=== PATIENT | male | born 1960 | race Caucasian/White ===

== ENCOUNTER 2018-06-29 21:20 | Observation (INO) | END 2018-06-30 18:29 | disposition home or self-care (01) ==

== ENCOUNTER 2019-08-02 11:52 | Inpatient (IN) | payer OTHER ==
[~2019-08-02] VITALS: Ht 167.6 cm; Wt 87.0 kg
[2019-08-02] VITALS (35 sets, daily range): BP systolic 89–141; BP diastolic 50–135; PULSE 59–83; RESP 12–29; Ht 167.6 cm; Wt 87.0 kg
[~2019-08-02 11:52] MED LIST: ASPI-817 PO; ATOR-2 PO; KETO10TA PO; LOSA25TA2 PO; METO-335 PO; PRAS10TA6 PO
[2019-08-02] MEDS ORDERED: ATROPINE 1 MG/10 ML SYRINGE ONE ×2 (12:25→18:15)
[2019-08-02] MEDS ORDERED: LIDOCAINE 1% (MDV) 20 ML INJ ONE (12:25)
[2019-08-02] MEDS ORDERED: IOHEXOL 350MG/ML 50 ML BTL ONE (12:28)
[2019-08-02] MEDS ORDERED: IODIXANOL LOCM 100 ML BTL ONE (12:28)
[2019-08-02] MEDS ORDERED: FENTAnyl 50 MCG/ML VIAL ONE (12:30)
[2019-08-02] MEDS ORDERED: PRASUGREL HYDROCHLORIDE 10 MG TABLET PO ONE (13:11)
[2019-08-02] MEDS ORDERED: HEPARIN 1000 UNITS/ML 10 ML INJ ONE (13:11)
[2019-08-02] MEDS ORDERED: SOD CHLORIDE 0.9% 1,000 ML IV SCH (13:12)
[2019-08-02] MEDS ORDERED: POTASSIUM CHLORIDE (SR) 20 MEQ TAB PO STA ×2 (13:16→14:42)
[2019-08-02] MEDS ORDERED: OXYCODONE/ACETAMINOPHEN (5/325) TAB PO PRN ×2 (13:30)
[2019-08-02] MEDS ORDERED: morphine 2 MG INJ IV PRN (13:30)
[2019-08-02] MEDS ORDERED: MAGNESIUM SULFATE 2 GM/50 ML 50 ML IVPB ONE (13:30)
[2019-08-02] MEDS ORDERED: ACETAMINOPHEN 325 MG TAB PO PRN ×2 (13:30→15:00)
[2019-08-02] MEDS: ONDANSETRON 4 MG INJ IV PRN ×2 (15:27→19:51)
[2019-08-02] MEDS: POTASSIUM CHLORIDE 40 MEQ in SOD CHLORIDE 0.45% 1,000 ML IV SCH (16:49)
[2019-08-02] MEDS ORDERED: DOPamine-D5W 1.6 MG/ML 250 ML IV SCH (17:00)
[2019-08-02] MEDS ORDERED: ALUMINUM HYDROXIDE 30 ML CUP PO PRN (20:00)
[2019-08-02] MEDS: AL HYDROX/MG HYDROX/SIMETH 30 ML CUP PO PRN (20:11)
[2019-08-02] MEDS: ATORVASTATIN 80 MG TAB PO SCH (20:51)
[2019-08-02] MEDS: LOSARTAN 25 MG TAB PO SCH (21:00)
[2019-08-03] VITALS (25 sets, daily range): BP systolic 94–130; BP diastolic 57–82; PULSE 66–92; RESP 10–27
[2019-08-03] MEDS: POTASSIUM CHLORIDE 40 MEQ in SOD CHLORIDE 0.45% 1,000 ML IV SCH (02:11)
[2019-08-03] MEDS: ASPIRIN (EC) 81 MG TAB PO SCH (08:36)
[2019-08-03] MEDS: PRASUGREL HYDROCHLORIDE 10 MG TABLET PO SCH (08:36)
[2019-08-03] MEDS: LOSARTAN 25 MG TAB PO SCH ×3 (08:37→21:14)
[2019-08-03] MEDS: AL HYDROX/MG HYDROX/SIMETH 30 ML CUP PO PRN (08:45)
[2019-08-03] MEDS ORDERED: DIAZEPAM 5 MG TAB PO ONE (11:30)
[2019-08-03] MEDS ORDERED: DIPHENHYDRAMINE 50 MG CAP PO ONE (11:30)
[2019-08-03] MEDS: METOPROLOL (XL) 25 MG TAB PO SCH (15:00)
[2019-08-03] MEDS: ATORVASTATIN 80 MG TAB PO SCH (21:10)
[2019-08-03] MEDS ORDERED: SOD CHLORIDE 0.45% 1,000 ML IV SCH (23:59)
[2019-08-04] VITALS (25 sets, daily range): BP systolic 86–122; BP diastolic 57–73; PULSE 62–80; RESP 11–20
[2019-08-04] MEDS: SOD CHLORIDE 0.9% 1,000 ML IV SCH ×2 (00:13→13:20)
[2019-08-04] MEDS ORDERED: DIPHENHYDRAMINE 50 MG CAP PO ONE (06:00)
[2019-08-04] MEDS ORDERED: DIAZEPAM 5 MG TAB PO ONE (06:00)
[2019-08-04] MEDS ORDERED: FENTAnyl 50 MCG/ML VIAL ONE (07:38)
[2019-08-04] MEDS ORDERED: MIDAZOLAM 1 MG/ML 2 ML INJ ONE (07:38)
[2019-08-04] MEDS ORDERED: LIDOCAINE 1% (MDV) 20 ML INJ ONE (07:38)
[2019-08-04] MEDS ORDERED: HEPARIN 1000 UNITS/ML 10 ML INJ ONE (07:38)
[2019-08-04] MEDS ORDERED: VERAPAMIL 5 MG INJ ONE (07:39)
[2019-08-04] MEDS ORDERED: NITROGLYCERIN (IC) 100 MCG/ML INJ ONE (07:39)
[2019-08-04] MEDS ORDERED: SOD CHLORIDE 0.9% 1,000 ML IV SCH (09:06)
[2019-08-04] MEDS ORDERED: SOD CHLORIDE 0.9% 1,000 ML ONE (09:16)
[2019-08-04] MEDS: METOPROLOL (XL) 25 MG TAB PO SCH (11:24)
[2019-08-04] MEDS: ASPIRIN (EC) 81 MG TAB PO SCH (11:25)
[2019-08-04] MEDS: PRASUGREL HYDROCHLORIDE 10 MG TABLET PO SCH (11:25)
[2019-08-04] MEDS: LOSARTAN 25 MG TAB PO SCH ×2 (11:25→21:00)
[2019-08-04] MEDS: ATORVASTATIN 80 MG TAB PO SCH (21:20)
[2019-08-05] VITALS: BP 99/63; PULSE 72; RESP 20
[2019-08-05] MEDS: SOD CHLORIDE 0.9% 1,000 ML IV SCH (02:40)
[2019-08-05 04:00] VITALS: BP 103/68; PULSE 73; RESP 20
[2019-08-05 07:43] VITALS: BP 105/59; PULSE 76; RESP 20
[2019-08-05] MEDS: ASPIRIN (EC) 81 MG TAB PO SCH (09:10)
[2019-08-05] MEDS: PRASUGREL HYDROCHLORIDE 10 MG TABLET PO SCH (09:10)
[2019-08-05] MEDS: LOSARTAN 25 MG TAB PO SCH (09:11)
[2019-08-05] MEDS: METOPROLOL (XL) 25 MG TAB PO SCH (09:12)
[2019-08-05 11:52] VITALS: BP 109/64; PULSE 71; RESP 18
== END 2019-08-05 14:00 | disposition home or self-care (01) | DRG 247 ==
LOC: E/R 11:52 → CCL 12:19 → SDS 12:20 → REC 14:38 → CCL 14:41 → ICU 15:08 → TEL 08-03 18:27
PROVIDERS: ADMIT Internal Medicine Interventional Cardiology; ATTEND Internal Medicine Interventional Cardiology
PROC: 027034Z Dilation of Coronary Artery, One Artery with Drug-eluting Intraluminal Device, Percutaneous Approach (ICD-10-PCS; principal; 2019-08-02)
PROC: 4A023N7 Measurement of Cardiac Sampling and Pressure, Left Heart, Percutaneous Approach (ICD-10-PCS; 2019-08-02)
PROC: B211YZZ Fluoroscopy of Multiple Coronary Arteries using Other Contrast (ICD-10-PCS; 2019-08-02)
PROC: B215YZZ Fluoroscopy of Left Heart using Other Contrast (ICD-10-PCS; 2019-08-02)
PROC: 027034Z Dilation of Coronary Artery, One Artery with Drug-eluting Intraluminal Device, Percutaneous Approach (ICD-10-PCS; 2019-08-04)
DX: I21.19 ST elevation (STEMI) myocardial infarction involving other coronary artery of inferior wall (principal); E78.5 Hyperlipidemia, unspecified; I10 Essential (primary) hypertension; F17.210 Nicotine dependence, cigarettes, uncomplicated; R55 Syncope and collapse
CPT/HCPCS: 36415; 70450; 71045; 80048; 80061; 82550; 82553; 82962; 83735; 84484; 85025; 85610; 85730; 87081; 92928; 92978; 93005; 93306; 93458; C1725; C1874; C1887; C1894; C9606; J0461; J1644; J2250; J2270; J2405; J3010; J3475; J3480; J7030; J7040; Q9967